=== PATIENT | female | born 1985 | race Asian ===

== ENCOUNTER 2017-04-12 09:37 | Emergency (ER) | payer BC ==
[~2017-04-12] VITALS: Ht 165.1 cm; Wt 83.9 kg
[2017-04-12 09:51] VITALS: TEMP 98
[2017-04-12 10:25] LABS: PLATELET COUNT 428 K/uL (152-353)
[2017-04-12 10:30] LABS: POTASSIUM 3.5 mmol/L (3.6-5.2); SODIUM 136 mmol/L (136-145)
[2017-04-12 11:55] VITALS: BP 147/85
== END 2017-04-12 12:00 | disposition home or self-care (01) ==
LOC: ED 09:37
DX: J20.9 Acute bronchitis, unspecified (principal); J21.9 Acute bronchiolitis, unspecified
CPT/HCPCS: 36415; 80053; 85027; 87081; 87804; 87880; 94664; 96365; 99284; J0696

== ENCOUNTER 2017-08-08 13:01 | Emergency (ER) | payer BC | END 2017-08-08 13:52 | disposition home or self-care (01) | LOC: ED 13:01 | DX: R06.02 Shortness of breath (principal) ==

== ENCOUNTER 2017-08-08 19:04 | Emergency (ER) | payer BC ==
[~2017-08-08] VITALS: Ht 165.1 cm; Wt 82.1 kg
[2017-08-08 20:31] LABS: PLATELET COUNT 521 K/uL (152-353)
[2017-08-08 21:40] VITALS: BP 120/77; TEMP 97.9
== END 2017-08-08 21:42 | disposition home or self-care (01) ==
LOC: ED 19:04
PROVIDERS: Specialist
DX: F50.89 Other specified eating disorder (principal); D64.9 Anemia, unspecified
CPT/HCPCS: 81000; 84443; 85027; 99283

== ENCOUNTER 2019-06-08 08:26 | Outpatient (CLI) | payer BC ==
[2019-06-08 09:02] LABS: PLATELET COUNT 333 K/uL (152-353)
== END 2019-06-08 19:34 | disposition home or self-care (01) ==
LOC: LABW 08:26
PROVIDERS: Nurse Practitioner Family
DX: L70.0 Acne vulgaris (principal); Z79.899 Other long term (current) drug therapy
CPT/HCPCS: 36415; 80076; 82465; 84478; 85027

== ENCOUNTER 2019-11-19 15:04 | Outpatient (CLI) | payer BC | END 2019-11-19 23:04 | disposition home or self-care (01) | LOC: LABW 15:04 | PROVIDERS: Dermatology | DX: E78.49 Other hyperlipidemia (principal) | CPT/HCPCS: 36415; 80061 ==

== ENCOUNTER 2021-08-29 08:14 | Outpatient (CLI) | payer OTHER ==
[2021-08-29 08:40] LABS: PLATELET COUNT 293 K/uL (152-353)
== END 2021-08-29 18:53 | disposition home or self-care (01) ==
LOC: LABW 08:14
PROVIDERS: ATTEND Nurse Practitioner Family
DX: L70.0 Acne vulgaris (principal); Z79.899 Other long term (current) drug therapy; E78.49 Other hyperlipidemia
CPT/HCPCS: 36415; 80076; 82465; 84478; 85027

== ENCOUNTER 2021-10-18 10:24 | Outpatient (CLI) | payer OTHER | END 2021-10-18 19:06 | disposition home or self-care (01) | LOC: LABW 10:24 | PROVIDERS: ATTEND Nurse Practitioner Family | DX: E78.49 Other hyperlipidemia (principal) | CPT/HCPCS: 36415; 80061 ==

== ENCOUNTER 2021-11-14 07:23 | Outpatient (CLI) | payer OTHER ==
[2021-11-14 07:42] LABS: PLATELET COUNT 282 K/uL (152-353)
== END 2021-11-14 19:20 | disposition home or self-care (01) ==
LOC: LABW 07:23
PROVIDERS: ATTEND Nurse Practitioner Family
DX: L70.0 Acne vulgaris (principal); Z79.899 Other long term (current) drug therapy
CPT/HCPCS: 36415; 80061; 80076; 85027

== ENCOUNTER 2022-04-11 09:17 | Outpatient (CLI) | payer OTHER ==
[2022-04-11 09:40] LABS: PLATELET COUNT 275 K/uL (152-353)
== END 2022-04-11 19:24 | disposition home or self-care (01) ==
LOC: LABW 09:17
PROVIDERS: ATTEND Nurse Practitioner Family
DX: L70.0 Acne vulgaris (principal); Z79.899 Other long term (current) drug therapy
CPT/HCPCS: 36415; 80076; 82465; 84478; 85027

== ENCOUNTER 2022-04-12 14:14 | Outpatient (CLI) | payer OTHER | END 2022-04-12 19:55 | disposition home or self-care (01) | LOC: LABW 14:14 | PROVIDERS: ATTEND Nurse Practitioner Family | DX: E78.49 Other hyperlipidemia (principal) | CPT/HCPCS: 80061 ==